=== PATIENT | female | born 1950 | race Caucasian/White ===

== ENCOUNTER 2024-03-21 10:41 | Outpatient (AMB) | payer MEDICARE, SELFPAY ==
--- NOTE | 2024-03-21 10:54 | A.OFFPC_ITS ---
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 Required: No Allergies bacitracin [From Neosporin ([id number])] Allergy (Unknown, Verified 03/23/24 13:41) Unknown latex Allergy (Unknown, Verified 03/23/24 13:41) Unknown neomycin [From Neosporin ([id number])] Allergy (Unknown, Verified 03/23/24 13:41) Unknown polymyxin B [From Neosporin ([id number])] Allergy (Unknown, Verified 03/23/24 13:41) Unknown antiobiotic cream Allergy (Unknown, Uncoded 03/23/24 13:41) Unknown Tobacco use date assessed: 03/21/24 Fall risk assessment: No Falls in past year Last assessed Fall Risk: 03/21/24 Dental Screening Dental Screen Date: 03/21/24 HPI HPI Comments History of Present Illness Details The patient is a 74 year old female with a past medical history of AR, pulmonary htn, CLL, hyperlipidemia, bladder cancer and osteopenia presenting for follow up CV: AR, pulmonary htn. stable on metoprolol. History of syncope nothing recent. Follows with Dr Coleman. Follows with vascular, Dr Santana for carotid artery stenosis History of prediabetes which has been stable. Heme/Onc -CLL-Has not required cytotoxic therapy. Follws with Dr Esteves -History of bladder cancer-treated with surgical resection. Follows with Dr Berg annually Saw [facility]-did not CIs. BCC-Follows with [facility] Mammogram: [facility] Stopped colonoscopy ROS CONSTITUTIONAL: Denies weight loss, fever and chills. HEENT: Denies changes in vision and hearing. RESPIRATORY: Denies SOB and cough. CV: Denies palpitations and CP GI: Denies abdominal pain, nausea, vomiting and diarrhea. : Denies dysuria and urinary frequency. MSK: Denies new myalgia and joint pain. SKIN: Denies rash and pruritus. NEUROLOGICAL: Denies headache PSYCHIATRIC: Denies recent changes in mood. PHYSICAL EXAM: GENERAL: Alert and oriented x 3. NAD EYES: EOMI. Anicteric. HENT: Moist mucous membranes. No scleral icterus. No cervical lymphadenopathy. LUNGS: Clear to auscultation bilaterally. CARDIOVASCULAR: Regular rate and rhythm. No murmur. No JVD. ABDOMEN: Soft, non-tender +bs EXTREMITIES: No edema. Non-tender. SKIN: No rashes or lesions. Warm. NEUROLOGIC: No focal neurological deficits. CN II-XII grossly intact PSYCHIATRIC: Cooperative. 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 1. Little interest or pleasure in doing things: not at all 2. Feeling down, depressed, or hopeless: not at all 3. Trouble falling or staying asleep, or sleeping too much: not at all 4. Feeling tired or having little energy: not at all 5. Poor appetite or overeating: not at all 6. Feeling bad about yourself - or that you are a failure or have let yourself or your family down: not at all 7. Trouble concentrating on things, such as reading the newspaper or watching television: not at all 8. Moving or speaking so slowly that other people could have noticed. Or the opposite - being so fidgety or restless that you have been moving around a lot more than usual: not at all 9. Thoughts that you would be better off or of hurting yourself in some way: not at all Total score: 0 Depression Screening Interpretation: Negative Depression Screening Done: Yes 01817 - PHQ-9 Billing: Yes Source: Developed by Drs. Andrez Slade, Kitty Torres, Kyle Starks and colleagues, with an educational kirt from [employer]. Thrive Questionnaire Date Thrive assessed: 03/14/24 I am a: Patient What is your living situation today?: I have a steady place to live Within the past 12 months, did the food you bought not last and you didn't have the money to get more?: Never true Within the past 12 months, did you worry whether your food would run out before you got money to buy more?: Never true Do you have trouble paying for medicines?: No Do you have trouble getting transportation to medical appointments?: No Do you have trouble paying your heating and electricity bill?: No Do you have trouble taking care of your child, family member or friend?: No Do you have trouble with day-to-day activities such as bathing, preparing meals, shopping, managing finances, etc.?: No Are you currently unemployed and looking for a job?: No Are you interested in more education?: No Please select the resources that you would like help with: None Currently or been in a relationship where the following occur: No concerns reported THRIVE Score: 0 AUDIT C Alcohol Use Questionnaire (AUDIT-C) 1. How often do you have a drink containing alcohol?: 4 or more times a week 2. How many drinks containing alcohol do you have on a typical day when you are drinking?: 1 or 2 3. How often do you have six or more drinks on one occasion?: Less than monthly Total Score: 5 MIGUEL-7 AMB Questionnaire MIGUEL-7 Feeling nervous, anxious, or on edge: 0 = Not at all Not being able to stop or control worryin = Not at all Worrying too much about different things: 0 = Not at all Trouble relaxin = Not at all Being so restless that it is hard to sit still: 0 = Not at all Becoming easily annoyed or irritable: 0 = Not at all Feeling afraid as if something awful might happen: 0 = Not at all Total MIGUEL-7 score (0-4 normal; 5-9 mild; 10-14 moderate; 15-21 severe): 0 Source: Developed by Drs. Andrez Slade, Kitty Torres, Kyle Starks and colleagues, with an educational kirt from [employer]. Physical exam (Primary Care) Vital Signs: Last Vital Signs Pulse 56 03/21/24 11:10 BP 108/62 03/21/24 11:10 Pulse Ox 98 03/21/24 11:10 Oxygen Delivery Method Room Air 03/21/24 11:10 BMI result Body Mass Index 24.5 Tobacco/Smoking Status: Tobacco use Status Tobacco use date assessed 03/21/24 03/21/24 11:09 Patient Tobacco Use Status Former Tobacco user 03/21/24 11:09 e-Cigarette/Vaping Use Never Used 03/21/24 11:09 PHQ-9: PHQ-9 Score PHQ-9: Total score 0 03/23/24 13:40 Depression Screening Interpretation: Negative Thrive Assessment: Date of Thrive Assessment Date Thrive assessed 03/14/24 03/21/24 11:09 Currently or been in a relationship where the following occur: No concerns reported Coding Level of Care Code Est Pt Level 4 (69317) Complex EM visit Add On G2211 Diagnoses Aortic valve insufficiency, etiology of cardiac valve disease unspecified I35.1 Cardiac valve disease etiology: etiology unspecified CLL (chronic lymphocytic leukemia) C91.10 History of bladder cancer Z85.51 Stenosis of carotid artery, unspecified laterality I65.29 Laterality: unspecified laterality Additional Codes PHQ-9 - 70015 - PHQ-9 Billing: Yes ([id number]) Assessment & Plan Assessment & Plan (1) Aortic regurgitation: Comment: Follows with Dr Coleman Code(s): I35.1 - Nonrheumatic aortic (valve) insufficiency Category: Medical Qualifiers: Cardiac valve disease etiology: etiology unspecified Qualified Code(s): I35.1 - Nonrheumatic aortic (valve) insufficiency Plan: UTD (2) CLL (chronic lymphocytic leukemia): Code(s): C91.10 - Chronic lymphocytic leukemia of B-cell type not having achieved remission Category: Medical Plan: Follows with heme/onc. UTD (3) History of bladder cancer: Code(s): Z85.51 - Personal history of malignant neoplasm of bladder Category: Medical Plan: Follows with heme/onc. (4) Carotid artery stenosis: Code(s): I65.29 - Occlusion and stenosis of unspecified carotid artery Category: Medical Qualifiers: Laterality: unspecified laterality Qualified Code(s): I65.29 - Occlusion and stenosis of unspecified carotid artery Plan: continue vascular follow up
[2024-03-21 11:10] VITALS: BP 108/62; PULSE 56; O2SAT 98; BMI 24.5
--- OUTSIDE RECORDS SUMMARY | 2024-03-21 12:07 | XMS_ITS ---
Author Name [facility] Organization Unknown History of Medication Use Medication Directions Dispensed Refills Start Date End Date Stat furosemide (LASIX) 20 MG tablet Take 20 mg by mouth as needed (swelling). 02/08/2024 9 active nirmatrelvir-ritonavi r (PAXLOVID) therapy pack Take two 150 mg tablets of nirmatrelvir and one 100 mg tablet of ritonavir twice daily for 5 days. Dispense #20 Nirmatrelvir 150 mg Tablets and #10 Ritonavir 100 mg tablets. 02/08/2024 9 active cefdinir (OMNICEF) 300 MG capsule Take 1 capsule (300 mg total) by mouth 2 (two) times a day. 10/21/2023 active Calcium Carb-Cholecalciferol (Calcium + Vitamin D3) 600-5 MG-MCG Tab 1 tablet with a meal Orally Once a day 10/21/2023 active doxycycline (VIBRA-TABS) 100 MG tablet Take 1 tablet (100 mg total) by mouth 2 (two) times a day. 10/17/2023 active alendronate 70 mg tablet 07/07/2023 completed betamethasone valerate 0.1 % topical cream PRN eczema 07/07/2023 completed olopatadine 0.2 % eye drops 07/07/2023 completed atorvastatin 40 mg tablet 07/07/2023 active Vitamin C 250 mg tablet 07/07/2023 completed simvastatin 20 mg tablet TAKE 1 TABLET BY ORAL ROUTE EVERY DAY IN THE EVENING 07/07/2023 completed mometasone 0.1 % topical cream 07/07/2023 completed Baby Aspirin 81 mg chewable tablet CHEW 1 TABLET (81MG) BY ORAL ROUTE EVERY DAY 07/07/2023 completed simvastatin 10 mg tablet TAKE 1 TABLET BY MOUTH EVERYDAY AT BEDTIME 07/07/2023 completed simvastatin 5 mg tablet TAKE 1 TABLET BY ORAL ROUTE EVERY DAY IN THE EVENING 07/07/2023 completed metoprolol succinate ER 25 mg tablet,extended release 24 hr TAKE 1 TABLET (25MG) BY ORAL ROUTE EVERY DAY 07/07/2023 active tobramycin 0.3 %-dexamethasone 0.1 % eye drops,suspension INSTILL 1 DROP INTO LEFT EYE 4 TIMES A DAY FOR 1 WEEK 07/07/2023 completed cephalexin 500 mg capsule TAKE 1 CAPSULE BY MOUTH 4 TIMES A DAY FOR 7 DAYS 07/07/2023 completed sulfamethoxazole 800 mg-trimethoprim 160 mg tablet 07/07/2023 completed azithromycin 250 mg tablet 07/07/2023 completed ciprofloxacin 500 mg tablet 07/07/2023 completed Fluad Quad [id number](65yr up)(PF) 60 mcg (15 mcg x 4)/0.5mL IM syringe PHARMACY ADMINISTERED 07/07/2023 completed amoxicillin 875 mg-potassium clavulanate 125 mg tablet 07/07/2023 completed Zostavax (PF) 19,400 unit/0.65 mL subcutaneous suspension 07/07/2023 completed doxycycline hyclate 100 mg capsule 07/07/2023 completed Calcium 500 + D 500 mg-5 mcg (200 unit) tablet TAKE 1 TABLET BY ORAL ROUTE 2 TIMES EVERY DAY 07/07/2023 completed Super B Complex + C 07/07/2023 a ctive mupirocin 2 % topical ointment APPLY TOPICALLY THREE TIMES A DAY. TO BACK SKIN LESION 07/07/2023 completed mupirocin (BACTROBAN) 2 % ointment Apply topically 3 (three) times a day. To back skin lesion 03/13/2023 active alendronate (FOSAMAX) 70 MG tablet 11/22/2022 active simvastatin (ZOCOR) 10 MG tablet Take 10 mg by mouth. 11/22/2022 active atorvastatin (LIPITOR) 40 MG tablet 03/13/2023 active simvastatin (ZOCOR) 10 MG tablet Take 10 mg by mouth. 11/22/2022 active CALCIUM PO Take by mouth. 11/22/2022 act marjorie Lactobacillus (Primadophilus) Cap Take by mouth. 11/22/2022 a ctive Super B Complex + C Super B Complex + C 06/24/2022 completed aspirin 81 MG chewable tablet Chew 81 mg daily. 03/13/2023 ac tive simvastatin 10 mg tablet TAKE 1 TABLET BY MOUTH EVERYDAY AT BEDTIME TAKE 1 TABLET BY MOUTH EVERYDAY AT BEDTIME 06/24/2022 completed metoPROLOL SUCCINATE (TOPROL-XL) 25 MG 24 hr tablet 11/22/2022 active metoprolol succinate ER 25 mg tablet,extended release 24 hr TAKE 1 TABLET (25MG) BY ORAL ROUTE EVERY DAY TAKE 1 TABLET (25MG) BY ORAL ROUTE EVERY DAY 06/24/2022 completed Allergies Allergen Reaction Severity Comment Documented Date Source Statu s CODEINE 06/10/2010 [facility] completed Problems Problem Status Onset Date Problem Type Date of Resolution Source Leukopenia active 2023-12-18 ProblemAct [facility] Malignant lymphoma, 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 ProblemAct [facility] Head congestion active EncounterDiagnosisAct [facility] Chronic lymphocytic leukemia active 2018-08-08 ProblemAct [facility] COVID-19 active EncounterDiagnosisAct [facility] Hyperlipidemia active 2013-01-[address] Leukemia active 2018-08-08 ProblemAct [facility] Heart murmur active 2013-01-17 ProblemAct [facility] Malignant tumor of urinary bladder active 2017-08-08 ProblemAct [facility] Tinnitus active ProblemAct [facility] Heart murmur active 2013-01-17 ProblemAct [facility] Hyperlipidemia active 2013-01-17 ProblemAct [facility] Chronic lymphoid leukemia, disease [facility] 2018-08-08 [facility] Vaccine Date Source Lot Number Status [id number] COVID-19, mRNA, LNP-S, PF, 30 mcg/0.3 mL dose 05/13/2020 [facility] completed Influenza, high dose seasonal 12/20/2018 [facility] [id number] completed Influenza vaccine, quadrivalent, adjuvanted 12/18/2021 [facility] [id number] completed COVID-19, mRNA, LNP-S, PF, 3 0 mcg/0.3 mL dose, cindy-sucrose 07/04/2021 [facility] [id number] completed COVID-19, mRNA, LNP-S, PF, 30 mcg/0.3 mL dose 12/11/2020 [facility] [id number] completed COVID-19, mRNA, LNP-S, PF, 30 mcg/0.3 mL dose 06/03/2020 [facility] completed Influenza vaccine, quadrivalent, adjuvanted 12/04/2019 [facility] [id number] completed
--- OUTSIDE RECORDS SUMMARY | 2024-03-21 12:07 | XMS_ITS | Data Portability ---
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 No Pap this year, PCP has ordered screening mammo, encouraged to schedule. tomas Not available 08/08/2018 13:29:57 Plan of Treatment Reminders Order Date Submit Date Provider Last Modified By Organization Details Last Modified Time Details Appointments None recorded. Lab urinalysi s, dipstick 2018 019 tomas In-Office Order, Internal Use Only DO Not Attach Compendium DO Not Attach Compendium, Do Not Delete/merge, [id number] 9 11:34:17 urinalysi s, dipstick 2020 021 [facility] 11 In-Office Order, Internal Use Only DO Not Attach Compendium DO Not Attach Compendium, Do Not Delete/merge, [id number] 12:59:24 urinalysi s, dipstick 2021 022 [facility] 11 In-Office Order, Internal Use Only DO Not Attach Compendium DO Not Attach Compendium, Do Not Delete/merge, [id number] 14:07:41 Referral None recorded. Procedures None recorded. Surgeries None recorded. Imaging MAMMO, screening , digital, bilateral , w/ CAD 2020 021 [facility] (Radiology), [address] [place], [address], 08:17:37 DEXA, axial skeleton 2023 024 [facility], [address] [place], [address], 08:21:29 Medication Orders None recorded. Patient TargetsNo targets recorded. Patient Instructions Encounter Date Encounter Id Patient Instructions Last Modified By Organization Details Last Modified Time 08/08/2018 [id number] preventing osteoporosis: care instructions [email or web address] Not available 08/08/2018 11:34:17 03/20/2020 [id number] [email or web address] Not available 0 03/20/2020 12:55:32 03/31/2021 [id number] tips to help you stay healthy [email or web address] Not available 03/31/2021 11:58:44 06/18/2022 [id number] rogel US of left groin; to monitor after US Not available 06/18/2022 12:54:43 Reason for Referral None Reported. Results Created Date Observation Date Name Description Value Unit Range Abnormal Flag Note LastModifiedBy Organization Detail LastModifiedTime 08/09/1908/08/2018 urina lysis , dipst ick Leukocytes Negati ve Not Available In-Office Order Internal Use Only DO Not Attach Compendium DO Not Attach Compendium, Do Not Delete/merge, [id number] 08/08/2018 10:52:22 08/09/1908/08/2018 urina lysis , dipst ick Nitrite negati ve Not Available In-Office Order Internal Use Only DO Not Attach Compendium DO Not Attach Compendium, Do Not Delete/merge, [id number] 08/08/2018 10:52:22 08/09/1908/08/2018 urina lysis , dipst ick Urobilinogen Normal : 0.2 mg/dl Not Available In-Office Order Internal Use Only DO Not Attach Compendium DO Not Attach Compendium, Do Not Delete/merge, [id number] 08/08/2018 10:52:08/09/1908/08/2018 urina lysis , dipst ick Protein Negati ve Not Available In-Office Order Internal Use Only DO Not Attach Compendium DO Not Attach Compendium, Do Not Delete/merge, 08/08/2018 10:52:22 08/09/1908/08/2018 urina lysis , dipst ick pH 7.0 Not Available In-Office Order Internal Use Only DO Not Attach Compendium DO Not Attach Compendium, Do Not Delete/merge, 08/08/2018 10:52:22 08/09/1908/08/2018 urina lysis , dipst ick Blood Negati ve Not Available In-Office Order Internal Use Only DO Not Attach Compendium DO Not Attach Compendium, Do Not Delete/merge, 08/08/2018 10:52:22 08/09/1908/08/2018 urina lysis , dipst ick Specific Quartzsite 1.005 Not Available In-Off ice Order Internal Use Only DO Not Attach Compendium DO Not Attach Compendium, Do Not Delete/merge, 08/08/2018 10:52:22 08/09/1908/08/2018 urina lysis , dipst ick Ketone Negati ve Not Available In-Office Order Internal Use Only DO Not Attach Compendium DO Not Attach Compendium, Do Not Delete/merge, 08/08/2018 10:52:22 08/09/1908/08/2018 urina lysis , dipst ick Bilirubin Negati ve Not Available In-Office Order Internal Use Only DO Not Attach Compendium DO Not Attach Compendium, Do Not Delete/merge, 08/08/2018 10:52:22 08/09/1908/08/2018 urina lysis , dipst ick Glucose Negati ve Not Available In-Office Order Internal Use Only DO Not Attach Compendium DO Not Attach Compendium, Do Not Delete/merge, 08/08/2018 10:52:22 08/09/1908/08/2018 urina lysis , dipst ick Appearance Clear Not Available In-Offi ce Order Internal Use Only DO Not Attach Compendium DO Not Attach Compendium, Do Not Delete/merge, 08/08/2018 10:52:22 08/09/19 19 08/08/2018 urina lysis , dipst ick Color Yellow Not Available In-Office Order Internal Use Only DO Not Attach Compendium DO Not Attach Compendium, Do Not Delete/merge, 08/08/2018 10:52:22 03/20/19 21 03/20/2020 urina lysis , dipst ick Leukocytes Trace Not Available In-Offi ce Order Internal Use Only DO Not Attach Compendium DO Not Attach Compendium, Do Not Delete/merge, 03/20/2020 12:14:28 03/20/19 21 03/20/2020 urina lysis , dipst ick Nitrite negati ve Not Available In-Office Order Internal Use Only DO Not Attach Compendium DO Not Attach Compendium, Do Not Delete/merge, 03/20/2020 12:14:28 03/20/19 21 03/20/2020 urina lysis , dipst ick Urobilinogen Normal : 0.2 mg/dl Not Available In-Office Order Internal Use Only DO Not Attach Compendium DO Not Attach Compendium, Do Not Delete/merge, 03/20/2020 12:14:28 03/20/19 21 03/20/2020 urina lysis , dipst ick Protein Negati ve Not Available In-Office Order Internal Use Only DO Not Attach Compendium DO Not Attach Compendium, Do Not Delete/merge, 03/20/2020 12:14:28 03/20/19 21 03/20/2020 urina lysis , dipst ick pH 7.0 Not Available In-Office Order Internal Use Only DO Not Attach Compendium DO Not Attach Compendium, Do Not Delete/merge, 03/20/2020 12:14:28 03/20/19 21 03/20/2020 urina lysis , dipst ick Blood Negati ve Not Available In-Office Order Internal Use Only DO Not Attach Compendium DO Not Attach Compendium, Do Not Delete/merge, 03/20/2020 12:14:28 03/20/19 21 03/20/2020 urina lysis , dipst ick Specific Quartzsite 1.010 Not Available In-Off ice Order Internal Use Only DO Not Attach Compendium DO Not Attach Compendium, Do Not Delete/merge, 03/20/2020 12:14:28 03/20/19 21 03/20/2020 urina lysis , dipst ick Ketone Negati ve Not Available In-Office Order Internal Use Only DO Not Attach Compendium DO Not Attach Compendium, Do Not Delete/merge, 03/20/2020 12:14:28 03/20/19 21 03/20/2020 urina lysis , dipst ick Bilirubin Negati ve Not Available In-Office Order Internal Use Only DO Not Attach Compendium DO Not Attach Compendium, Do Not Delete/merge, 03/20/2020 12:14:28 03/20/19 21 03/20/2020 urina lysis , dipst ick Glucose Negati ve Not Available In-Office Order Internal Use Only DO Not Attach Compendium DO Not Attach Compendium, Do Not Delete/merge, 03/20/2020 12:14:28 03/20/19 21 03/20/2020 urina lysis , dipst ick Appearance Clear Not Available In-Offi ce Order Internal Use Only DO Not Attach Compendium DO Not Attach Compendium, Do Not Delete/merge, 03/20/2020 12:14:28 03/20/19 21 03/20/2020 urina lysis , dipst ick Color Yellow Not Available In-Office Order Internal Use Only DO Not Attach Compendium DO Not Attach Compendium, Do Not Delete/merge, 03/20/2020 12:14:28 03/31/19 22 03/31/2021 urina lysis , dipst ick Interpretati on negati ve Not Available In-Office Order Internal Use Only DO Not Attach Compendium DO Not Attach Compendium, Do Not Delete/merge, 03/31/2021 14:07:18 03/31/19 22 03/31/2021 urina lysis , dipst ick Interpretati on negati ve Not Available In-Office Order Internal Use Only DO Not Attach Compendium DO Not Attach Compendium, Do Not Delete/merge, 03/31/2021 13:44:10 03/31/19 22 03/31/2021 urina lysis , dipst ick Leukocytes Negati ve Not Available In-Office Order Internal Use Only DO Not Attach Compendium DO Not Attach Compendium, Do Not Delete/merge, 03/31/2021 13:44:10 03/31/19 22 03/31/2021 urina lysis , dipst ick Nitrite negati ve Not Available In-Office Order Internal Use Only DO Not Attach Compendium DO Not Attach Compendium, Do Not Delete/merge, 03/31/2021 13:44:10 03/31/19 22 03/31/2021 urina lysis , dipst ick Urobilinogen Normal : 0.2 mg/dl Not Available In-Office Order Internal Use Only DO Not Attach Compendium DO Not Attach Compendium, Do Not Delete/merge, 03/31/2021 13:44:10 03/31/19 22 03/31/2021 urina lysis , dipst ick Protein Negati ve Not Available In-Office Order Internal Use Only DO Not Attach Compendium DO Not Attach Compendium, Do Not Delete/merge, 03/31/2021 13:44:10 03/31/19 22 03/31/2021 urina lysis , dipst ick pH 7.0 Not Available In-Office Order Internal Use Only DO Not Attach Compendium DO Not Attach Compendium, Do Not Delete/merge, 03/31/2021 13:44:10 03/31/19 22 03/31/2021 urina lysis , dipst ick Blood Negati ve Not Available In-Office Order Internal Use Only DO Not Attach Compendium DO Not Attach Compendium, Do Not Delete/merge, 03/31/2021 13:44:10 03/31/19 22 03/31/2021 urina lysis , dipst ick Specific Quartzsite 1.005 Not Available In-Off ice Order Internal Use Only DO Not Attach Compendium DO Not Attach Compendium, Do Not Delete/merge, 03/31/2021 13:44:10 03/31/19 22 03/31/2021 urina lysis , dipst ick Ketone Negati ve Not Available In-Office Order Internal Use Only DO Not Attach Compendium DO Not Attach Compendium, Do Not Delete/merge, [id number] 03/31/2021 13:44:10 03/31/19 22 03/31/2021 urina lysis , dipst ick Bilirubin Negati ve Not Available In-Office Order Internal Use Only DO Not Attach Compendium DO Not Attach Compendium, Do Not Delete/merge, 03/31/2021 13:44:10 03/31/19 22 03/31/2021 urina lysis , dipst ick Glucose Negati ve Not Available In-Office Order Internal Use Only DO Not Attach Compendium DO Not Attach Compendium, Do Not Delete/merge, 03/31/2021 13:44:10 03/31/19 22 03/31/2021 urina lysis , dipst ick Appearance Clear Not Available In-Offi ce Order Internal Use Only DO Not Attach Compendium DO Not Attach Compendium, Do Not Delete/merge, 03/31/2021 13:44:10 03/31/19 22 03/31/2021 urina lysis , dipst ick Color Yellow Not Available In-Office Order Internal Use Only DO Not Attach Compendium DO Not Attach Compendium, Do Not Delete/merge, 03/31/2021 13:44:10 12/06/19 20 12/06/2019 MAMMO , scree kermit, tomos ynthe sis, bilat eral No observ ation record ed. BARCODE Not Available 2019 14:31:48 04/08/19 22 03/31/2021 MAMMO , scree kermit, tomos ynthe sis, bilat eral HISTOR Y: Rufina villatoro is 71 years old and is seen for screen ing. FILMS COMPAR ED: The prescooper villatoro examin ation has been compar ed to prior imagin g studie s dated 2017, 2016 and 2015. BLAS STATEKayden ENT: Comput er-aid ed detect ion was utiliz ed by the radiol ogist in the interp retati on of this examin ation. 3D tomosy nthesi s digita l mammog raphic images were obtain ed using standa rd projec tions. MAMMOG DEEPALI FINDIN GS: The breast s are hetero geneou sly dense, which may obscur e small masses . (ACR BIRADS densit y Catego ry c) * No suspic ious masses , calcif icatio ns or other abnorm alitie s are seen in either breast . IMPRES WESTLEY: There is no mammog raphic eviden ce of malign denice. Routin e follow -up mammog deepali in 1 year is recomm ended. The rufina villatoro will receiv e a lay summar y of the result s of this breast imagin g exam. Lay summar ies for mammog kim examin ations will also identi fy the rufina villatoro's person al breast tissue compos ition as requir ed by state law. BIRADS Catego ry 1: Negati ve Electr onical ly Signed By: JEAN-PAUL GALINDO Electr onical ly Signed On: Apr 08, 2021 07:06 [facility] [place] [address], [place], [address], 04/08/2021 18:29:49 08/30/19 22 08/19/2021 DEXA, axial skele ton No observ ation record ed. [facility] [address], [place], [address], 08/29/2021 16:10:49 06/25/19 23 06/18/2022 MAMMO , scree kermit, tomos ynthe sis, bilat eral HISTOR Y: Rufina villatoro is 72 years old and is seen for screen ing. The rufina villatoro has the follow ing family histor y of breast cancer : female cousin , at an unknow n age, breast cancer , IN HER 50'S. FILMS COMPAR ED: The kathy villatoro examin ation has been compar ed to prior imagin g studie s dated 2021, 2017, 2016 and 2015. BLAS RECINOS ENT: Comput er-aid ed detect ion was utiliz ed by the radiol ogist in the interp retati on of this examin ation. 3D tomosy nthesi s digita l mammog raphic images were obtain ed using standa rd projec tions. MAMMOG DEEPALI FINDIN GS: The breast s are hetero geneou sly dense, which may obscur e small masses . (ACR BIRADS densit y Catego ry c) * No suspic ious masses , calcif icatio ns or other abnorm alitie s are seen in either breast . IMPRES WESTLEY: There is no mammog raphic eviden ce of malign denice. Routin e follow -up mammog deepali in 1 year is recomm ended. The patien t will receiv e a lay summar y of the result s of this breast imagin g exam. Lay summar ies for mammog kim examin ations will also identi fy the patien t's person al breast tissue compos ition as requir ed by state law. BIRADS Catego ry 1: Negati ve Electr onical ly Signed By: JEAN-PAUL GALINDO Electr onical ly Signed On: Jun 24, 2022 11:15 [facility] [address], [place], [address], 07/01/2022 08:09:57 07/07/1907/07/2023 MAMMO , scree kermit, tomos ynthe sis, bilat eral No observ ation record ed. [email or web address] [facility] [address], [place], [address], 07/15/2023 09:52:44 07/15/19 24 07/05/2023 MAMMO , scree kermit, tomos ynthe sis, bilat eral No observ ation record ed. BARCODE Not Available 2023 09:59:31 09/24/1909/23/2023 DEXA, axial skele ton No observ ation record ed. [facility] [address], [place], [address], 09/24/2023 15:20:59 Result Notes None recorded. 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, monitored w/ cystoscop y JOE SEN MD [address], [place], [place], [address] [place] [address] 4, [facility] 9 11:17:25 Leukemia 39434773 Completed 201808/08/2018 being monitored JOE SEN MD [address], [place], [place], [address] [place] [address] 4, [facility] 9 11:16:41 Ringing in ear 199329522 Completed 201808/08/2018 JOE SEN MD [address], [place], [place], [address] [place] [address] 4, [facility] 9 11:12:18 Tinnitus 96754829 Active JOE SEN MD [address], [place], [place], [address] [place] [address] 4, [facility] 9 11:12:13 Chronic lymphoid leukemia , disease 42060228 Active 2018 being monitored Willow Randall [facility] 0 09:50:37 Heart murmur 21508107 Active 2012 hx fainting spells JOE SEN MD [address], [place], [place], [address] [place] [address] 4, [facility] 6 14:20:57 Hyperlip idemia 28536785 Active 2012 JOE SEN MD [address], [place], [address], [facility] 6 14:20:57 Depressi on screenin g Active 2021 Julia schmitt MD [address], [place], [address], [facility] 2 10:08:15 Gynecolo gic examinat ion Active 2021 Julia schmitt MD [address], [place], [address], [facility] 2 10:08:17 Problem Notes None recorded. Procedures Surgical History Date Name Laterality Status Provider Name and Address Organization Details Recorded Time 07/05/19 24 Date of Last Mammogram completed Dinorah Hay [facility] 07/07/2023 15:24:09 08/09/19 19 Medicare Exam completed JOE SEN MD [address], [place], [address], [facility] 08/08/2018 11:36:11 09/30/19 18 Other completed Kitty Dick [facility] 08/08/2018 10:46:45 07/20/19 18 Medicare Exam completed JOE SEN MD [address], [place], [address], [facility] 07/19/2017 12:57:46 07/20/19 18 Screening PAP Medicare completed JOE SEN MD [address], [place], [address], [facility] 07/19/2017 12:58:19 07/20/19 18 Date of Last Pap Smear completed Renetta Flores [facility] 03/24/2021 10:02:04 07/16/19 17 Cataract Surgery completed Kitty Dick [facility] 07/19/2017 10:42:49 05/26/19 17 [id number] completed JOE SEN MD [address] [place], [address] [place] [address], [facility] 05/25/2016 11:54:35 05/26/19 17 [id number] completed JOE SEN MD [address], [address] [place] [address], [address] [place] [address], [facility] 05/25/2016 11:54:43 05/26/19 17 [id number] completed JOE SEN MD [address] [place], [address] [place] [address], [facility] 05/25/2016 11:54:32 05/26/19 17 [id number] completed JOE SEN MD [address], [address] [place] [address], [address] [place] [address], [facility] 05/25/2016 11:54:38 05/13/19 16 [id number] completed JOE SEN MD [address], [address] [place] [address], [address] [place] [address], [facility] 05/13/2015 16:20:34 05/13/19 16 [id number]-[id number] completed JOE SEN MD [address] [place], [address] [place] [address], [facility] 05/13/2015 16:20:34 05/13/19 16 [id number] completed JOE SEN MD [address] [place], [address] [place] [address], [facility] 05/13/2015 16:20:34 05/13/19 16 [id number] completed JOE SEN MD [address] [place], [address] [place] [address], [place] - [facility] 05/13/2015 16:20:34 04/24/19 15 Date of Last Colonoscopy completed Mariam Liang CT - [facility] 05/10/2015 09:01:47 03/01/18 60 Other completed Mariam Rices CT - [facility] 05/10/2015 09:01:46 03/01/18 59 Tonsillectomy completed Mariam Rices CT - [facility] 05/10/2015 09:01:46 excision of basal cell carcinoma completed Deonna De La Rosa [place] - [facility] 07/05/2023 10:35:29 excision of melanoma completed Deonna De La Rosa [place] - [facility] 07/05/2023 10:36:44 Imaging Results Imaging Date Name Status LastModified by Organiz ation Details LastModified Time 12/06/2019 MAMMO, screening, tomosynthesis, bilateral completed BARCODE Information not available 12/06/2019 14:31:48 03/31/2021 MAMMO, screening, tomosynthesis, bilateral completed [facility] [address], [place], [address], 04/08/2021 18:29:49 08/19/2021 DEXA, axial skeleton completed [email or web address] [facility] [address], [place], [address], 08/29/2021 16:10:49 06/18/2022 MAMMO, screening, tomosynthesis, bilateral completed [facility] [place] [address], [place], [address], 07/01/2022 08:09:57 07/07/2023 MAMMO, screening, tomosynthesis, bilateral completed [email or web address] [facility] [address], [place], [address], 07/15/2023 09:52:44 07/05/2023 MAMMO, screening, tomosynthesis, bilateral completed BARCODE Information not available 07/15/2023 09:59:31 09/23/2023 DEXA, axial skeleton completed [facility] [address], [place], [address], 09/24/2023 15:20:59 Procedure Notes None recorded. Medical Equipment None Reported. Allergies Allergen ID Allergen Name Allergen Category Reaction Reaction Severity Criticality Documentation Date Start Date Code Code System Note Provider Name and Address Organization Details Recorded Time [id number] nickel environme nt Not available Not available Not available 03/31/2021 79820 29 RxNorm Renetta Mark [facility], [facility] 11:24:11 415501 bacitraci n zinc medicatio n vomiting Not available Not available 06/23/20142012 37393 RxNorm RASH; NEOSP ZOILALyubov Girard [facility], [facility] 6 08:37:03 888054 polymyxin B Not available vomiting Not available Not available 06/23/20142012 8536 RxNorm REACT ION: RASH; NEOSP ZOILA Kailee Girard null, [facility] 6 08:37:03 224971 latex environme nt,medica tion rash Not available Not available 06/23/20142012 07441 91 RxNorm REACT ION: RASH Kailee gaviria, [facility] 6 08:37:03 145475 codeine medicatio n Not available Not available Not available 06/23/20142010 2670 RxNorm Kailee Girard null, [facility] 6 14:01:10 560142 neomycin sulfate medicatio n vomiting Not available Not available 06/23/20142012 7300 RxNorm RASH; NEOSP ZOILA Kailee Girard null, [facility] 6 08:37:03 071391 bacitraci n Not available vomiting Not available Not available 06/23/20142012 1291 RxNorm NEOSP ZOILA; RASH Kailee Girard null, [place] [facility] 6 08:37:03 Medications Name Sig Start Date Stop Date Status Note LastModified by Organization Details LastModified Time atorvasta tin 40 mg tablet active Not Available Not Available Not Available doxycycli ne hyclate 100 mg capsule 03/30 completed Not Available Not Available Not Available azithromy doyle 250 mg tablet 08/08 completed Not Available Not Available Not Available alendrona te 70 mg tablet 06/15 completed Not Available Not Available Not Available simvastat in 10 mg tablet TAKE 1 TABLET BY MOUTH EVERYDAY AT BEDTIME 07/03 completed Not Available Not Available Not Available ciproflox acin 500 mg tablet 07/19 completed Not Available Not Available Not Available sulfameth oxazole 800 mg-trimet hoprim 160 mg tablet 05/25 completed Not Available Not Available Not Available betametha sone valerate 0.1 % topical cream PRN eczema 06/15 completed Not Available Not Available Not Available simvastat in 5 mg tablet TAKE 1 TABLET BY ORAL ROUTE EVERY DAY IN THE EVENING 01/17 completed PRESCRIB ED ELSEWHER E Not Available Not Available Not Available cephalexi n 500 mg capsule TAKE 1 CAPSULE BY MOUTH 4 TIMES A DAY FOR 7 DAYS 03/30 completed Not Available Not Available Not Available simvastat in 20 mg tablet TAKE 1 TABLET BY ORAL ROUTE EVERY DAY IN THE EVENING 01/17 completed Not Available Not Available Not Available magnesium 100 mg capsule 01/04 completed PRESCRIB ED ELSEWHER E Not Available Not Available Not Available Baby Aspirin 81 mg chewable tablet CHEW 1 TABLET (81MG) BY ORAL ROUTE EVERY DAY 08/08 completed Not Available Not Available Not Available mupirocin 2 % topical ointment APPLY TOPICALL Y THREE TIMES A DAY. TO BACK SKIN LESION 07/03 completed Not Available Not Available Not Available metoprolo l succinate ER 25 mg tablet,ex tended release 24 hr TAKE 1 TABLET (25MG) BY ORAL ROUTE EVERY DAY active Not Available Not Available No t Available Vitamin C 250 mg tablet 08/08 completed Not Available Not Available Not Available multivita min capsule TAKE 1 CAPSULE BY ORAL ROUTE EVERY DAY 05/25 completed Not Available Not Available Not Available mometason e 0.1 % topical cream 06/15 completed Not Available Not Available Not Available amoxicill in 875 mg-potass ium clavulana te 125 mg tablet 03/30 completed Not Available Not Available Not Available tobramyci n 0.3 %-dexamet hasone 0.1 % eye drops,lisa pension INSTILL 1 DROP INTO LEFT EYE 4 TIMES A DAY FOR 1 WEEK 03/30 completed Not Available Not Available Not Available Calcium 500 + D 500 mg-5 mcg (200 unit) tablet TAKE 1 TABLET BY ORAL ROUTE 2 TIMES EVERY DAY 03/17 completed Not Available Not Available Not Available Calcium 600 with Vitamin D3 active Not Available Not Available Not Available Zostavax (PF) 19,400 unit/0.65 mL subcutane ous suspensio n 05/25 completed Not Available Not Available Not Available Super B Complex + C active Not Available Not Available Not Available olopatadi ne 0.2 % eye drops 03/30 completed Not Available Not Available Not Available Probiotic 1 time daily active Not Available Not Available No t Available B6 100 mg-FA 800 mcg-B12 200 mcg-co Q10 100 mg-herbal no.225 tablet 07/19 completed Not Available Not Available Not Available Fluad Quad 2619-5254 (65yr up)(PF) 60 mcg (15 mcg x 4)/0.5mL IM syringe PHARMACY ADMINIST ERED 03/17 completed Not Available Not Available Not Available Paxlovid 300 mg (150 mg x 2)-100 mg tablets in a dose pack PLEASE SEE ATTACHED FOR DETAILED DIRECTIO NS 07/03 completed Not Available Not Available Not Available Vitals Date Recorded Body height Provider Name an d Address Organization Details Last Updated DateTime 08/08/2018 157.48 cm Kitty Dick [facility] 08/08/2018 10:52:09 Date Recorded Body mass index (BMI) Body weight Provider Name and Address Organization Details Last Updated DateTime 08/08/2018 26.5 kg/m2 13057.89 g Kitty Dick [facility] 08/08/2018 10:52:13 Date Recorded Body height Provider Name an d Address Organization Details Last Updated DateTime 03/20/2020 157.48 cm Lashae Jenkinsmaryjerica [facility] 03/20/2020 12:10:55 Date Recorded Body mass index (BMI) Body weight Provider Name and Address Organization Details Last Updated DateTime 03/20/2020 24.1 kg/m2 18282.19 g Lashae Jenkinsnathan [facility] 03/20/2020 12:11:47 Date Recorded Body height Provider Name an d Address Organization Details Last Updated DateTime 03/31/2021 156.21 cm Renetta Flores [facility] 03/31/2021 11:28:42 Date Recorded Body mass index (BMI) Body weight Provider Name and Address Organization Details Last Updated DateTime 03/31/2021 24.2 kg/m2 21175.01 g Renetta Flores [facility] 03/31/2021 11:28:47 Date Recorded Body height Provider Name an d Address Organization Details Last Updated DateTime 06/18/2022 156.21 cm Kitty Dick [facility] 06/18/2022 12:13:22 Date Recorded Body mass index (BMI) Body weight Provider Name and Address Organization Details Last Updated DateTime 06/18/2022 24 kg/m2 90400.42 g Kitty Dick [facility] 06/18/2022 12:13:32 Date Recorded Body height Provider Name an d Address Organization Details Last Updated DateTime 07/05/2023 157.48 cm Deonna De La Rosa [facility] 07/05/2023 10:27:38 Date Recorded Body mass index (BMI) Body weight Provider Name and Address Organization Details Last Updated DateTime 07/05/2023 24.3 kg/m2 77589.79 g Deonna De La Rosa [facility] 07/05/2023 10:27:42 Date Recorded Systolic blood pressure Diastolic blood pressure Provider Name and Address Organization Details Last Updated DateTime 08/08/2018 120 mm[Hg] 76 mm[Hg] Kitty Dick [facility] 08/08/2018 10:52:06 Date Recorded Systolic blood pressure Diastolic blood pressure Provider Name and Address Organization Details Last Updated DateTime 03/20/2020 124 mm[Hg] 82 mm[Hg] Lashae Jenkinsmaryjerica [facility] 03/20/2020 12:15:58 Date Recorded Systolic blood pressure Diastolic blood pressure Provider Name and Address Organization Details Last Updated DateTime 03/31/2021 120 mm[Hg] 76 mm[Hg] Renetta Marriscoll [facility] 03/31/2021 11:30:20 Date Recorded Systolic blood pressure Diastolic blood pressure Provider Name and Address Organization Details Last Updated DateTime 06/18/2022 112 mm[Hg] 62 mm[Hg] Kitty PriceMayelin [facility] 06/18/2022 12:13:18 Date Recorded Systolic blood pressure Diastolic blood pressure Provider Name and Address Organization Details Last Updated DateTime 07/05/2023 126 mm[Hg] 82 mm[Hg] Deonna De La Rosa [facility] 07/05/2023 10:28:29 Social History Question Answer Notes LastModified by Organizat ion Details LastModified Time Tobacco Smoking Status Former Smoker quit in 2007 Kailee gaviria [facility] 05/13/2015 14:05:32 What Is Your Level Of Alcohol Consumption? Moderate Information not available 08/08/2018 Is Blood Transfusion Acceptable In An Emergency? Yes [email or web address] Information not available 06/18/2022 Are You Currently Employed? No [email or web address] Information not available 07/05/2023 Education 12 [email or web address] Information no t available 06/18/2022 What Is The Highest Grade Or Level Of School You Have Completed Or The Highest Degree You Have Received? [id number] [email or web address] Information not available 03/31/2021 What Is Your Occupation? Retired [email or web address] Information not available 06/18/2022 Do You Have Any Children? No Information not available 05/25/2016 Does Your Partner Physically Hurt You Or Threaten To Hurt You? No Information not available 07/19/2017 Has Your Partner Forced You To Have Sex Or Perform Sex Acts When You Did Not Want To? No Information not available 07/19/2017 Does Your Partner Insult, Scream At Or Talk Down To You? No Information not available 07/19/2017 Does Your Partner Control You Or Any Part Of Your Life? No Information not available 07/19/2017 Are You Afraid Of Your Partner? No Information not available 07/19/2017 Tobacco Type Cigarettes Information not available 08/08/2018 Drug Use? No Information n ot available 07/19/2017 Do You Feel Safe At Home? Yes [email or web address] Information not available 05/13/2015 What Was The Date Of Your Most Recent Tobacco Screening? 07/05/2023 Information not available 07/05/2023 How Many Children Do You Have? 0 [email or web address] Information not available 03/31/2021 Are You Sexually Active? No Information not available 07/05/2023 General Stress Level Medium [email or web address] Information not available 06/18/2022 Do You Feel Stressed (tense, Restless, Nervous, Or Anxious, Or Unable To Sleep At Night)? [id number] [email or web address] Information not available 03/31/2021 How Many Years Have You Smoked Tobacco? 35 Information not available 05/25/2016 Have You Recently Traveled Abroad? No [email or web address] Information not available 03/20/2020 Have You Recently (within The Last 12 Weeks, Or During A Current ) Traveled To Or Lived In A Zika-affected Area? No [email or web address] Information not available 06/18/2022 Sex: Female Functional Status Question Answer Note LastModified by Organization D etails LastModified Time What is your exercise level? Moderate Information not available 05/25/2016 Mental Status None recorded. Family History Relationship Description Onset Age of this Age Resolved Age Notes LastModified by Organization Details LastModified Time Unspecified Relation Hyperlipidem ia family histor y [email or web address] Not available 05/13/2015 16:19:09 Father Hypertensive disorder [email or web address] Not available 05/12 16:19:09 Father Myocardial infarction [email or web address] Not available 07/04 10:26:17 Father Kidney stone Not avai lable 07/05/2023 10:26:17 Father Gout pt. added direct ly (03/17) [email or web address] Not available 03/17/2020 12:18:20 Mother Malignant tumor of lung [email or web address] Not available 05/12 16:19:10 Mother Chronic obstructive pulmonary disease [email or web address] Not available 2023 10:26:17 Paternal Aunt Myocardial infarction [email or web address] Not available 07/04 10:26:17 Paternal Grandmother Malignant neoplastic disease [email or web address] Not available 05/12 16:19:10 Paternal Grandmother Myocardial infarction [email or web address] Not available 07/04 10:26:17 Maternal Grandfather History of aortofemoral bypass surgery [email or web address] Not available 2023 10:26:17 Sister Disorder of thyroid gland Not available 07/30 10:48:43 Sister Kidney stone [email or web address] Not avai lable 07/05/2023 10:26:17 Sister Coronary arterioscler osis Bypass surger y 2020 [email or web address] Not available 03/20/2020 13:08:54 Brother Kidney stone [email or web address] Not ryann ilable 07/05/2023 10:26:17 Brother Malignant tumor of prostate pt. added direct ly (06/15) [email or web address] Not available 06/15/2022 18:32:15 Notes:no known colon ovarian uterine or breast cancer. LL Medical History Condition Response Heart Problems Y Other Y Hyperlipidemia Y Cancer Y Osteoporosis Y Gynecological History Statement/Question Response Date of Last Mammogram 07/05/2023 Date of LMP Breast Biopsy N IPV Screen Done 07/05/2023 STIs/STDs N Cervical Cancer N If Post Menopausal, Age at Menopause 50 BrCa gene tested? N Ovarian Cancer N Date of Last Colonoscopy 04/24/2014 Breast Cancer N Date of last DEXA 07/06/2016 Last HPV Result Negative Abnormal Pap N BrCa Positive N Infertility N HPV Vaccine N Endometriosis N Age at Menarche 15 Current Control Method Menopause Fibroids N Uterine Cancer N Current Control Method Menopause Sexually Active? N Sexual Problems? N Date of Last Pap Smear 07/19/2017 Obstetrics History GPAL:G 1 P 0 0 1 0 Type Value Induced 1 Living 0 Total 1 Immunizations Vaccine Type Date Status Note Provider Nam e and Address Organization Details Recorded Time Influenza, adjuvanted, quadrivalent, PF 12/04/2019 completed Deonna De La Rosa null, [facility] 07/02/2023 08:23:56 Influenza, adjuvanted, quadrivalent, PF 12/18/2021 completed Deonna De La Rosa null, [facility] 07/02/2023 08:23:56 COVID-19, mRNA, LNP-S, PF, 30 mcg/0.3 mL dose, [email or web address] 07/04/2021 completed Deonna De La Rosa null, [facility] 07/02/2023 08:23:56 Influenza, high-dose, trivalent, PF 12/20/2018 completed Deonna De La Rosa null, [facility] 07/02/2023 08:23:56 COVID-19, mRNA, LNP-S, PF, 30 mcg/0.3 mL dose 05/13/2020 garcia gaviria, [facility] 03/31/2021 11:25:52 COVID-19, mRNA, LNP-S, PF, 30 mcg/0.3 mL dose [facility] 11:25:57 COVID-19, mRNA, LNP-S, PF, 30 mcg/0.3 mL dose 12/11/2020 [facility] 08:23:56 Past Encounters Encounter ID Performer Location Encounter Start Date Encounter Closed Date Diagnosis/Indication Diagnosis SNOMED-CT Code Diagnosis ICD10 Code Diagnosis Note [id number] JOE SEN MD [facility] 20 [facility] e [address] [place] [id number] 05/13/2015 13:49:19 05/13/2015 14:40:05 Gynecologic examination 44290205 Z01.192 [id number] JOE SEN MD [facility] [address] [facility],[address] [place] [address] 05/25/2016 11:19:26 05/25/2016 11:56:23 Gynecologic examination 13594204 Z01.601 [id number] JOE SEN MD [facility] 20 [facility],S[address] [place], [place] [address] 07/19/2017 10:25:32 07/19/2017 11:23:45 Gynecologic examination 13280453 Z01.419 Z11.51 Screening for malignant neoplasm of cervix 432703512 Z12.4 [id number] JOE SEN MD [facility] 20 [facility],[address] [place] [id number] 08/08/2018 10:28:52 08/08/2018 11:43:04 Gynecologic examination 22458953 Z01.419 Z12.4 [id number] Julia Segura MD [facility] 20 [facility] e [address] [place] [phone] 03/20/2020 12:02:23 03/20/2020 13:06:04 Gynecologic examination 82637687 Z01.419 Pt p/f well-woman exam. Pt's history is unremarkab le and exam is normal. - Pap was {{performe d not performed* }}today as guidelines recommend d/c'ing cervical CA screening at age 65 as long as no h/o DOYLE-2+, pt without any abnl paps thus no further paps indicated. - Annual Digital Bilateral Mammogram was recommende d and ordered--U S also recommende d for screening if patients have dense breasts. Next due 11/2020. - Pt counseled regarding menopausal symptoms including hot flushes, vaginal dryness, mood changes, and difficulty sleeping. She has been offered an appointmen t to speak to me specifical ly about these symptoms and some strategies to ease them if and when they occur. - Pt made aware that any VB after menopause is not normal and she should call to make an appointmen t for evaluation if she experience s PMB. - Pt advised on the benefits of self-breas t awareness and SBE. - Pt made aware of recommenda tion of 1200 mg of daily Calcium (best source is from diet, if possible) and 600-800iu of Vitamin D daily (2000iu if deficient) along with weight bearing exercise to promote bone health. Pt followed by PCP for osteoporos is, on alendronat e and requested next DEXA result as ordered by PCP be fwd to our office. - Discussed with patient the benefits of regular exercise and physical activity as well as a balanced, heart-heal thy diet in order to maintain a healthy weight. - Recommende d regular primary care health maintenanc e with her PCP. - For f/u with urologist and hematologi st for h/o bladder CA and CLL. - Pt not due for colonoscop y (rpt due 2024) - Encouraged annual flu vaccinatio n, pt s/p vaccinatio n this season - Pt to schedule a well woman Product Safety Head exam in one year and to call us with any question or concerns regarding her health and welfare. Cystocele [id number] N81. 10 Mild cystocele noted on exam, may be contributi ng to pts difficulty in voiding, pt advised on reposition ing techniques to ensure bladder emptying. If sx persist or if having feeling of full bladder/in ability to empty, to return for postvoid residual volume assessment . Depression screening 171 044699 Z13.31 [id number] Julia Segura MD [facility] 20 [facility],[address] [address] 03/31/2021 11:17:10 03/31/2021 12:03:30 Gynecologic examination 38078193 Z01.419 Pt p/f well-woman exam. Pt's history is unremarkab le and exam is normal. - Pap was {{performe d not performed* }}today as guidelines recommend d/c'ing cervical CA screening at age 65 as long as no h/o DOYLE-2+, pt without any abnl paps thus no further paps indicated. - Annual Digital Bilateral Mammogram was recommende d and ordered--U S also recommende d for screening if patients have dense breasts. Pt had in office mammo today, will f/u result. - Pt counseled regarding menopausal symptoms including hot flushes, vaginal dryness, mood changes, and difficulty sleeping. She has been offered an appointmen t to speak to me specifical ly about these symptoms and some strategies to ease them if and when they occur. - Pt made aware that any VB after menopause is not normal and she should call to make an appointmen t for evaluation if she experience s PMB. - Pt advised on the benefits of self-breas t awareness and SBE. - Pt made aware of recommenda tion of 1200 mg of daily Calcium (best source is from diet, if possible) and 2000iu vit D3 daily along with weight bearing exercise to promote bone health. Pt followed by PCP for osteoporos is, on alendronat e and next DEXA per PCP. - Discussed with patient the benefits of regular exercise and physical activity as well as a balanced, heart-heal thy diet in order to maintain a healthy weight. - Recommende d regular primary care health maintenanc e with her PCP. - For f/u with urologist and hematologi st for h/o bladder CA and CLL. - Pt not due for colonoscop y (rpt due 2024), pt considerin rita cologuard for next one. - Encouraged annual flu vaccinatio n and COVID vaccine/mary ost. - Pt to schedule a well woman Product Safety Head exam in one year and to call us with any question or concerns regarding her health and welfare. Depression screening 171 364965 Z13.31 neg [id number] Julia Segura MD [facility] 20 [facility],[address] [address] 06/18/2022 11:59:23 06/18/2022 13:00:48 Gynecologic examination 50093554 Z01.419 Pt p/f well-woman exam. Pt's history is unremarkab le and exam is normal. - Pap was not performed today as guidelines recommend d/c'ing cervical CA screening at age 65 as long as no h/o DOYLE-2+, pt without any abnl paps thus no further paps indicated. - Annual Digital Bilateral Mammogram was recommende d and ordered--U S also recommende d for screening if patients have dense breasts. Pt had in office mammo today, will f/u report. - Pt counseled regarding menopausal symptoms including hot flushes, vaginal dryness, mood changes, and difficulty sleeping. She has been offered an appointmen t to speak to me specifical ly about these symptoms and some strategies to ease them if and when they occur. - Pt made aware that any VB after menopause is not normal and she should call to make an appointmen t for evaluation if she experience s PMB. - Pt advised on the benefits of self-breas t awareness and SBE. - Pt made aware of recommenda tion of 1200 mg of daily Calcium (best source is from diet, if possible) and 2000iu vit D3 daily along with weight bearing exercise to promote bone health. Pt followed by PCP for osteoporos is, completed ~5yrs of alendronat e and next DEXA per PCP (last 2021 showed improvemen t) - Discussed with patient the benefits of regular exercise and physical activity as well as a balanced, heart-heal thy diet in order to maintain a healthy weight. - Recommende d regular primary care health maintenanc e with her PCP. - For f/u with urologist and hematologi st for h/o bladder CA and CLL. - Pt not due for colonoscop y (rpt due 2024), pt considerin rita cologuard for next one. - Pt to schedule a well woman Product Safety Head exam in one year and to call us with any question or concerns regarding her health and welfare. Depression screening 171 [id number] Z13.31 neg [id number] Julia Segura MD [facility] 20 [facility],[address] [address] 07/05/2023 10:18:58 07/05/2023 11:44:26 Gynecologic examination [id number] Z01.419 Pt p/f well-woman exam. Pt's history is unremarkab le and exam is reassuring . - Pap was not performed today as guidelines recommend d/c'ing cervical CA screening at age 65 as long as no h/o DOYLE-2+, pt without any abnl paps thus no further paps indicated. - Annual Digital Bilateral Mammogram was recommende d and ordered--U S also recommende d for screening if patients have dense breasts. Pt had in office mammo today, will f/u report. - Pt counseled regarding menopausal symptoms including hot flushes, vaginal dryness, mood changes, and difficulty sleeping. She has been offered an appointmen t to speak to me specifical ly about these symptoms and some strategies to ease them if and when they occur. - Pt made aware that any VB after menopause is not normal and she should call to make an appointmen t for evaluation if she experience s PMB. - Pt advised on the benefits of self-breas t awareness and SBE. - Pt made aware of recommenda tion of 1200 mg of daily Calcium (best source is from diet, if possible) and 2000iu vit D3 daily along with weight bearing exercise to promote bone health. Pt followed by PCP for osteoporos is, completed ~5yrs of alendronat e and next DEXA ordered (discussed rec to schedule 2 yrs after last 07/2021 DEXA (thus can schedule as early as August given insurance coverage every other year). - Discussed with patient the benefits of regular exercise and physical activity as well as a balanced, heart-heal thy diet in order to maintain a healthy weight. - Recommende d regular primary care health maintenanc e with her PCP. - For f/u with urologist and hematologi st for h/o bladder CA and CLL. - Pt not due for colonoscop y (rpt colon CA screen due 2024), pt considerin rita cologuard for next one. - Pt to schedule a breast check in 1 yr and a well woman Product Safety Head exam in 2 yrs. Also to call us with any question or concerns regarding her health and welfare. Depression screening 171 183524 Z13.31 neg Health Concerns Section Related Observation LastModified by Organization Detai ls LastModified Time None Recorded Concern Status LastModified by Organization Details LastModified Time None Recorded Advance Directives Directive None Recorded Payers Encounter Date Sequence Insurance Name Policy Number Policy Ruiz Covered Member ID Ruiz Member ID Guarantor Name 08/08/2018 1 [facility] - MEDICARE PREFERRED (MEDICARE REPLACEMENT HMO) [facility] Mendy Beyer [id number] 1 Mendy Beyer 03/20/2020 1 [facility] - MEDICARE PREFERRED (MEDICARE REPLACEMENT HMO) HUNTER Beyer [id number] Mendy Beyer 03/31/2021 1 [facility] - MEDICARE PREFERRED (MEDICARE REPLACEMENT HMO) [facility] [id number] 1 Mendy Beyer 06/18/2022 1 [facility] - MEDICARE PREFERRED (MEDICARE REPLACEMENT HMO) HUNTER Beyer [id number] 1 Mendy Beyer 07/05/2023 1 [facility] - MEDICARE PREFERRED (MEDICARE REPLACEMENT HMO) [facility] Mendy Beyer [id number] 1 Mendy Beyer Notes Date Note Type Note Provider Name and Address Organization Details Recorded Time 08/08/2018 text/html [facility] Annual GYNReported bypatient.History: no gynecologic complaints Menstrual cycle:postmenopaus al Urinary symptoms:No hematuria; No incontinence Vulva:No genital lesion Vagina:Normal vaginal discharge Breast:No breast pain; No breast lump; No nipple discharge Sexual activity:sexually active no; No sexual complaints Preventive measures:Followed with yearly pap smears (every 2 yrs); Needs to schedule mammogram; Up to date on colonoscopy screening JOE SEN MD [address] [facility], [address] [facility], [place], [address], [facility] 08/08/2018 13:30:43 03/20/2020 text/html [facility] Annual GYNReported bypatient.History: declined inspector fabric. pt c/o trouble emptying bladder.-acd Menstrual cycle:postmenopaus al Urinary symptoms:No hematuria; No incontinence Vulva:No genital lesion Vagina:Normal vaginal discharge Breast:No breast pain; No breast lump; No nipple discharge Sexual activity:sexually active no; No sexual complaints Menopausal symptoms:No menopausal symptoms; Normal vaginal lubrication Psychological symptoms:No depression; No anxiety Preventive measures:Encourage self breast examination; Encourage regular exercise; Encourage no tobacco use; Encourage regular mammograms starting age 40Notes:70 y.o. F presents for annual well-woman visit. Pt in recovery from bladder CA--- yearly visits to urology (due per pt April 2020). Also followed by hematology for CLL--- seeing that specialist [id number] and considering spacing out to one year. Treated by PCP for osteoporosis with alendronate. Pt reports she has trouble completely emptying, often has to wait after her initial voiding attempt and then completely void. No VB since menopause. Denies vaginal dryness, not sexually active, see case 03/20/20 or IPV screen. Diet is balanced, varied source of calcium, takes vitamin D3. Exercise is through walking her dogs. Moods are good denies, depr/anx. Pt denies any fever/chills, n/v, SOB, CP, dizziness, leg pain. No bloating or early satiety, no significant wt changes. No bowel complaints. No breast complaints. Julia Segura MD [address] [facility], [address], [place], [address], [place] [facility] 03/20/2020 13:11:26 03/31/2021 text/html [facility] Annual GYNReported bypatient.History: no gynecologic complaints; Pt reports no concerns today, declines inspector fabric /ALD Menstrual cycle:postmenopaus al Urinary symptoms:No hematuria; No incontinence Vulva:No genital lesion Vagina:Normal vaginal discharge Breast:No breast pain; No breast lump; No nipple discharge Sexual activity:sexually active no; No sexual complaints Menopausal symptoms:No menopausal symptoms; Normal vaginal lubrication Psychological symptoms:No depression; No anxiety Preventive measures:Encourage self breast examination; Encourage regular exercise; Encourage no tobacco use; Encourage regular mammograms starting age 42Notes:71 y.o. F presents for annual well-woman visit.Pt in recovery from bladder CA--- yearly visits to urology (due per pt April 2021).Also followed by hematology for CLL--- seeing that specialist [id number] for now (Dr. Brown) Treated by PCP for osteoporosis with alendronate. No VB since menopause.Denies vaginal dryness, not sexually active, no change to IPV screen (see update to case from 03/20/20). Pt reporting happy/safe currently. Diet is balanced, varied source of calcium, takes vitamin D3.Exercise is through walking her dog.Moods are good denies, depr/anx.Pt denies any fever/chills, n/v, SOB, CP, dizziness, leg pain. No bloating or early satiety, no significant wt changes. No bowel complaints. No breast complaints. No urinary complaints. Julia Segura MD [address] [place] [address], [address] Floor, [place], [address], [facility] 03/31/2021 14:07:48 06/18/2022 text/html [facility] Annual GYNReported bypatient.Menstrua l cycle:postmenopaus al Urinary symptoms:No hematuria; No incontinence Vulva:No genital lesion Vagina:Normal vaginal discharge Breast:No breast pain; No breast lump; No nipple discharge Sexual activity:No sexual complaints; No pain during intercourse; Normal libido Menopausal symptoms:No menopausal symptoms; Normal vaginal lubrication Psychological symptoms:No depression; No anxiety; No PMDDNotes:72 y.o. F presents for annual well-woman visit. Pt's poodle was put down 2 days ago d/t CA in lungs. Pt not yet ready for a new dog. Pt in recovery from bladder CA--- yearly visits to urology.Also followed by hematology for CLL--- seeing that specialist [id number] for now (Dr. Brown)Treated previously by PCP for osteoporosis with alendronate, now on drug holiday given improvement in bone density. No VB since menopause. Denies vaginal dryness, not sexually active, see update to case from 03/20/20 for IPV screen. Pt reporting happy/safe currently. Diet is balanced, varied source of calcium, takes vitamin D3.Exercise is through walking her dog (who just 2 days ago), also standing/lifting while working at [employer].Moods are good denies, depr/anx. No bloating or early satiety, no significant wt changes. No bowel complaints. No breast complaints. No urinary complaints. Julia Segura MD [address] [place] [address], [address] Floor, [place], [address], [facility] 06/18/2022 21:06:49 07/05/2023 text/html [facility] Annual GYNReported bypatient.Menstrua l cycle:postmenopaus al Urinary symptoms:No hematuria; No incontinence Vulva:No genital lesion Vagina:Normal vaginal discharge Breast:No breast pain; No breast lump; No nipple discharge Sexual activity:sexually active no ; No sexual complaints; No pain during intercourse; Normal libido Menopausal symptoms:No menopausal symptoms; Normal vaginal lubrication Psychological symptoms:No depression; No anxiety; No PMDDNotes:73 y.o. F presents for annual well-woman visit.Pt got a new dog (rescue, 2 yrs old), walking w/ dog 4 mi/day.Still working parttime at [employer]. Watching b/l carotid stenosis, being monitored by ultrasound.Pt in recovery from bladder CA--- yearly visits to urology.Also followed by hematology for CLL--- seeing Dr. Brown 1-2x yearly, known left groin LN per pt already evaluated by Dr. Brown and related to her CLL. Treated previously by PCP for osteoporosis with alendronate, now on drug holiday given improvement in bone density. No VB since menopause.Denies vaginal dryness, not sexually active, see update to case from 03/20/20 for IPV screen. Diet is balanced, varied source of calcium, takes vitamin D3.Exercise is through walking her dog 4mi/day. Also standing/lifting while working at [employer].Moods are good denies, depr/anx. No bloating or early satiety, no significant wt changes. No bowel complaints. No breast complaints. No urinary complaints. Patroller declined. Well woman visit. No concerns. LL Julia Segura MD [address] [place] [address], [address] Floor, [place], [address], [place] [facility] 07/05/2023 11:04:36 OBGyn Episode No OBEpisode recorded.
--- OUTSIDE RECORDS SUMMARY | 2024-03-21 12:07 | XMS_ITS | Clinical Summary ---
Author Organization [facility] Address [address] [place] [address] Care Team Providers Care Barley Steeper Name Role Phone Laura Isbell PA-C Primary Care Provider Allergies Active Allergy Reactions Criticality Noted Date Comments Latex 10/15/2017 Miconazole 10/15/2017 Nickel 10/15/2017 Medications Medication Sig Dispensed Refills Start Date End Date Status CALCIUM PO Take by mouth. 0 Active metoprolol succinate (TOPROL-XL) 24 hr tablet 25 mg Take by mouth daily. 0 Active Lactobacillus (PRIMADOPHILUS PO) Take by mouth. 0 Ac tive B Complex Vitamins (B COMPLEX 1 PO) Take by mouth. 0 Active atorvastatin (LIPITOR) tablet 40 mg Take 1 tablet (40 mg total) by mouth daily. 0 Active Active Problems No known active problems Social History Tobacco Use Types Packs/Day Years Used Date Smoking Tobacco: Former Cigarettes Q uit: 03/01/2007 Smokeless Tobacco: Never Alcohol Use Standard Drinks/Week Comments Yes 0 (1 standard drink = 0.6 oz pur e alcohol) Sex and Gender Information Value Date Recorded Sex Assigned at Not on file Gender Identity Not on file Sexual Orientation Not on file Job Start Date Occupation Industry Not on file Not on file Not on file Last Filed Vital Signs Vital Sign Reading Time Taken Comments Blood Pressure 140/76 01/12/2023 9:09 AM EST Pulse 55 01/12/2023 9:09 AM EST Temperature 36.7 ??C (98 ??F) 01/12/2023 9:09 AM EST Respiratory Rate - - Oxygen Saturation 100% 01/12/2023 9:09 AM EST Inhaled Oxygen Concentration - - Weight 59 kg (130 lb) 01/12/2023 9:09 AM EST Height 157.5 cm (5' 2 ) 01/12/2023 9:09 AM EST Body Mass Index 23.78 01/12/2023 9:09 AM EST Plan of Treatment Health Maintenance Due Date Last Done Comments Hepatitis C Screening 1952 Depression Screening 1964 Preventative Health Evaluation 1970 DTap / Tdap / Td (1 - Tdap) 1971 Colon Cancer Screening (Colonoscopy) 1997 Breast Cancer Screening (Mammogram) 2002 Shingrix-Zoster Vaccine (1 o f 2) 2002 Fall Risk Assessment 2017 Pneumococcal Vaccine (1 of 1 - PCV) 2017 Osteoporosis Screening (DEXA Scan) 07/06/2018 07/06/2016 COVID-19 Vaccine ( - 2023-2 5 season) 2023 12/11/2020, 06/03/2020, 05/13/2020 Influenza Vaccine (#1) 2023 RSV Adult > 60+ Yrs or (1 - 1-dose 75+ series) 2027 Hepatitis B Vaccines Aged Out No long er eligible based on patient's age to complete this topic RSV Ped < 20 months Aged Out No longe r eligible based on patient's age to complete this topic Care Teams Barley Steeper Relationship Specialty Start Date End Date Laura Isbell PA-C PCP - General Medical Services 02/02/22
--- OUTSIDE RECORDS SUMMARY | 2024-03-21 12:07 | XMS_ITS | Clinical Summary ---
Author Organization [facility] Address [address] [place] [address] Care Team Providers Care Manager Talent Acquisition Name Role Phone Laura Isbell Primary Care Provider [phone] Allergies Active Allergy Reactions Criticality Noted Date Comments Bacitracin GI Intolerance/Nausea/Vomiting, Unknown/Patient and Family Unable to Define Medium 01/17/2013 Latex Rash/Dermatitis,Unkn own/Heather ent and Family Unable to Define Medium 01/17/2013 Lwl-Gcglu-Vnib-Lidocaine Rash/Dermatitis Low 2023 Neomycin GI Intolerance/Nausea/Vomiting, Unknown/Patient and Family Unable to Define Medium 01/17/2013 Nickel Rash/Dermatitis,GI Intolerance/Nausea/Vomiting Low 10/15/2017 Polymyxin B GI Intolerance/Nausea/Vomiting, Hives Medium 01/17/2013 Medications Medication Sig Dispensed Refills Start Date End Date Status metoPROLOL SUCCINATE (TOPROL-XL) 25 MG 24 hr tablet 11/25/2020 Active CALCIUM PO Take by mouth. Active Lactobacillus (Primadophilus) Cap Take by mouth. A ctive B Complex-Folic Acid (B COMPLEX-VITAMIN B12 PO) Take by mouth. Active atorvastatin (LIPITOR) 40 MG tablet 12/30/2022 Active aspirin 81 MG chewable tablet Chew 81 mg daily. Active Calcium Carb-Cholecalciferol (Calcium + Vitamin D3) 600-5 MG-MCG Tab 1 tablet with a meal Orally Once a day Active furosemide (LASIX) 20 MG tablet Take 20 mg by mouth as needed (swelling). Active Active Problems Problem Noted Date Diagnosed Date Leukopenia 12/18/2023 Malignant lymphoma, small lymphocytic 12/18/2023 Chronic lymphocytic leukemia 08/08/2018 Overview (02/06/2024): being monitored Leukemia 08/08/2018 Overview (02/06/2024): being monitored Heart murmur 01/17/2013 Overview (02/06/2024): hx fainting spells Hyperlipidemia 01/17/2013 Encounters Date Type Department Care Team Description 02/06/2024 4:45 PM EST Office Visit [facility] [address] [phone] Clifford Robert MD Devitt, Anna C, [place] COVID-19 (Primary Dx); Head congestion 02/06/2024 Travel from Last 3 Months Immunizations Name Administration Dates Next Due Tdap 11/14/2023 Social History Tobacco Use Types Packs/Day Years Used Date Smoking Tobacco: Former Cigarettes 1 35 1 973 - 2008 Smokeless Tobacco: Never Tobacco Cessation:Counseling Given: Not Answered Alcohol Use Standard Drinks/Week Comments Yes 23 (1 standard drink = 0.6 oz pure alcohol) wine @ weekdays, vodka some weekends Sex and Gender Information Value Date Recorded Sex Assigned at Female 11/19/2022 2:49 PM EDT Gender Identity Female 11/19/2022 2:49 PM EDT Sexual Orientation Heterosexual (straight) 11/19 2:49 PM EDT Last Filed Vital Signs Vital Sign Reading Time Taken Comments Blood Pressure 130/80 02/06/2024 3:19 PM EST Pulse 65 02/06/2024 3:19 PM EST Temperature 36.7 ??C (98 ??F) 02/06/2024 3:19 PM EST Respiratory Rate 16 02/06/2024 3:19 PM EST Oxygen Saturation 98% 02/06/2024 3:19 PM EST Inhaled Oxygen Concentration - - Weight 59 kg (130 lb) 02/06/2024 3:19 PM EST Height 157.5 cm (5' 2 ) 02/06/2024 3:19 PM EST Body Mass Index 23.78 02/06/2024 3:19 PM EST Plan of Treatment Health Maintenance Due Date Last Done Comments Hepatitis C Virus Screening 1950 Pneumococcal Vaccines 50+ (1 of 2 - PCV) 1971 Zoster (Shingles) Vaccine (1 of 2) 1971 Mammogram 1992 Colonoscopy 1997 RSV Vaccine 60 years and older and Patients (1 - Risk 60-74 years 1-dose series) 2012 DXA Bone Density (Females,Ages 65 and older) 2017 Influenza Vaccine 09/30/2023 12/19/2021, , 12/04/2019, Additional history exists COVID-19 Vaccine ( season) 2023 07/04/2021, 12/11/2020, 06/03/2020, Additional history exists DTaP/Tdap/Td Vaccines (2 - Td or Tdap) 11/13/2033 11/14/2023 Hepatitis B Vaccines Aged Out No long er eligible based on patient's age to complete this topic Procedures Procedure Name Priority Date/Time Associated Diagnosis Comments POCT RAPID COVID-19 AG (FDA EUA) Routine 02/06/2024 3:36 PM EST Head congestion from Last 3 Months Results * (ABNORMAL) POCT Rapid COVID-19 Antigen (FDA EUA) (02/06/2024 3:36 PM EST) COVID-19 Rapid Antigen, POC (FDA EUA) Positive(A ) Result Comments: A Positive Result does not rule out bacterial infection or co-infection with other viruses. Clinical correlation advised. A Negative Result in symptomatic patients should be considered presumptive and needs confirmation by PCR. Kit Lot Number [id number] Cloth Sponger Pass Pass Swab, Nasal Specimen from nose / Unknown 02/06/2024 3:36 PM EST Enedina Villar MARBLE CLEANER POINT OF CARE TEST O RDERABLES from Last 3 Months Care Teams Manager Talent Acquisition Relationship Specialty Start Date End Date Laura Isbell PA [address] [place] [id number] PCP - General General Medicine 02/06/24
--- OUTSIDE RECORDS SUMMARY | 2024-03-21 12:07 | XMS_ITS | Clinical Summary ---
Author Organization [facility] Address [address] [place] [address] Phone Care Team Providers Care Lighting Designer Name Role Phone Laura Isbell Primary Care Provider [phone] Allergies Active Allergy Reactions Criticality Noted Date Comments Bacitracin Nausea And Vomiting,Unknown Medium 01/18/20 13 Latex Rash,Unknown Medium 01/17/2013 Miconazole 10/15/2017 Oyv-Olnbq-Bdrf-Lidocaine Rash Low 10/23/2023 Neomycin Nausea And Vomiting,Unknown Medium 01/18/20 13 Nickel Nausea And Vomiting,Rash Low 10/15/2017 Polymyxin B Hives,Nausea And Vomiting Medium 3 Medications Medication Sig Dispensed Refills Start Date End Date Status atorvastatin (LIPITOR) 40 mg tablet 12/30/2022 Active metoprolol succinate (TOPROL-XL) 25 mg 24 hr tablet 11/25/2020 Active calcium carbonate-vitamin D3 600 mg-5 mcg (200 unit) per tablet 1 tablet with a meal Orally Once a day Active aspirin 81 mg chewable tablet Chew 1 tablet (81 mg total) daily. Active furosemide (LASIX) 20 mg tablet Take by mouth. 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/18/2023 Leukopenia 12/18/2023 Encounters Date Type Department Care Team Description 01/13/2024 10:00 AM EST Office Visit [facility] Hematology Oncology [address] [place] [phone] Ira Esteves MD Malignant lymphoma, small lymphocytic (CMS/HCC) (Primary Dx) from Last 3 Months Surgical History Surgery Date Site/Laterality Comments EYE SURGERY PROCEDURE:EYE SURGERY TONSILLECTOMY PROCEDURE:TONSILLECTOMY OTHER SURGICAL HISTORY PROCEDURE:adenoids Medical History Medical History Date Comments Gross hematuria DX:Gross hematur ia Urinary tract infection DX:Urina ry tract infection Bladder cancer (CMS/HCC) DX:Blad mitzi cancer (HCC) H/O cystoscopy 09/22/2017 DX:H/O cystoscop y Social History Tobacco Use Types Packs/Day Years [...] file Not on file Not on file Obstetrics History Last Filed Vital Signs Vital Sign Reading Time Taken Comments Blood Pressure 143/76 01/13/2024 10:04 AM EST Pulse 60 01/13/2024 10:04 AM EST Temperature 36.7 ??C (98 ??F) 01/13/2024 10:04 AM EST Respiratory Rate - - Oxygen Saturation 100% 01/13/2024 10:04 AM EST Inhaled Oxygen Concentration - - Weight 60.3 kg (133 lb) 01/13/2024 10:04 AM EST Height 157.5 cm (5' 2 ) 12/18/2023 1:23 PM EDT Body Mass Index 24.33 12/18/2023 1:23 PM EDT Plan of Treatment Upcoming Encounters Date Type Department Care Team (Late st Contact Info) Description 01/12/2025 10:00 AM EST Office Visit [facility] Hematology Oncology [address] [place] [phone] Ira Esteves MD [address] [place] [address] Health Maintenance Due Date Last Done Comments Breast Cancer Screening 1952 Zoster Vaccines (1 of 2) 1971 Colorectal Cancer Screening: Colonoscopy 02/05/2022 Depression Screening 02/05/2022 Falls Risk Assessment 02/05/2022 Hepatitis C Screening 02/05/2022 Medicare Annual Wellness Visit 02/05/2022 Osteoporosis Screening (Bone Density Screening) 02/05/2022 Social Influencers of Health Screening 02/05/2022 COVID-19 Vaccine ( season) 2023 12/03/2022, 07/13/2022, 06/03/2020, Additional history exists Influenza Vaccine (#1) 2023 , 12/19/2021, 11/11/2020, Additional history exists RSV Immunization Patients 60+ Years Old (1 - 1-dose 75+ series) 2027 DTaP,Tdap,and Td Vaccines (2 - Td or Tdap) 11/13/2033 11/14/2023 Pneumococcal Vaccine: 65+ Years Completed 01/19/2022 HIB Vaccines Aged Out No longer eligi ble based on patient's age to complete this topic HPV Vaccines Aged Out No longer eligi ble based on patient's age to complete this topic Hepatitis A Vaccines Aged Out No long er eligible based on patient's age to complete this topic Hepatitis B Vaccines Aged Out No long er eligible based on patient's age to complete this topic IPV Vaccines Aged Out No longer eligi ble based on patient's age to complete this topic MMR Vaccines Aged Out No longer eligi ble based on patient's age to complete this topic Meningococcal ACWY Vaccine Aged Out N o longer eligible based on patient's age to complete this topic RSV Immunization Patients Under 20 months Aged Out No longer eligible based on patient's age to complete this topic Varicella Vaccines Aged Out No longer eligible based on patient's age to complete this topic Procedures Procedure Name Priority Date/Time Associated Diagnosis Comments ..MISCELLANEOUS REFERENCE LAB TEST 01/13/2024 ..MISCELLANEOUS REFERENCE LAB TEST 01/13/2024 ..MISCELLANEOUS REFERENCE LAB TEST 01/13/2024 ..MISCELLANEOUS REFERENCE LAB TEST 01/13/2024 from Last 3 Months Results * Miscellaneous reference lab test (01/13/2024) Only the most recent of4 resultswithin the time period is included. Provider Onbase LAB BLOOD ORDERABLES from Last 3 Months Care Teams Lighting Designer Relationship Specialty Start Date End Date Laura Isbell PA [address] [place] [address] [place] [address] PCP - General 02/02/22
== END 2024-03-21 11:23 | disposition home or self-care (01) ==
PROVIDERS: Visit Provider Internal Medicine
DX: I35.1 Nonrheumatic aortic (valve) insufficiency (principal); C91.10 Chronic lymphocytic leukemia of B-cell type not having achieved remission; Z85.51 Personal history of malignant neoplasm of bladder; I65.29 Occlusion and stenosis of unspecified carotid artery

== ENCOUNTER → 2024-03-21 10:41 | Outpatient (BNVA) | payer MEDICARE, SELFPAY | PROVIDERS: Visit Provider Internal Medicine | DX: E78.5 Hyperlipidemia, unspecified (principal); C91.10 Chronic lymphocytic leukemia of B-cell type not having achieved remission; R73.03 Prediabetes; I35.1 Nonrheumatic aortic (valve) insufficiency; I65.29 Occlusion and stenosis of unspecified carotid artery; Z85.51 Personal history of malignant neoplasm of bladder | CPT/HCPCS: 96127; 99212 ==

== ENCOUNTER 2024-08-21 10:47 | Outpatient (AMB) | payer MEDICARE, SELFPAY ==
--- NOTE | 2024-08-21 10:49 | A.OFFPC_ITS ---
Vital Signs 08/21/24 10:56 Height 5 ft 1.61 in Weight 131 lb 4 oz BMI 24.3 BP 132/57 L Blood Pressure Location Lt brachial Position Sitting Respiration 12 Pulse 57 Pulse Source Pulse Oximeter Temp 98.1 F Temp Source Oral Pulse Oximetry (%) 97 Oxygen Delivery Method Room Air Intake Visit Reasons: CPE/AWV Intake Note: Physical Pain Management Nurse Practitioner Required: No Allergies bacitracin (From Neosporin ([id number])) Allergy (Unknown, Verified 08/21/24 10:54) Unknown latex Allergy (Unknown, Verified 08/21/24 10:54) Unknown neomycin (From Neosporin ([id number])) Allergy (Unknown, Verified 08/21/24 10:54) Unknown polymyxin B (From Neosporin ([id number])) Allergy (Unknown, Verified 08/21/24 10:54) Unknown antiobiotic cream Allergy (Unknown, Uncoded 08/21/24 10:54) Unknown Tobacco use date assessed: 08/21/24 Fall risk assessment: No Falls in past year Last assessed Fall Risk: 08/21/24 Dental Screening Dental Screen Date: 08/21/24 Did you have a dental visit in the last 12 months?: Yes Did you have a dental problem in the last 6 months where you did not have access to dental care?: No Was dental information given to patient?: Patient has dentist HPI HPI Comments History of Present Illness Details The patient is a 74 year old female with a past medical history of AR, pulmonary htn, CLL, hyperlipidemia, bladder cancer and osteopenia presenting for CPE CV: AR, pulmonary htn. stable on metoprolol. History of syncope, no recent episodes. Follows with Dr Coleman. Follows with vascular, Dr Santana for carotid artery stenosis-UTD History of prediabetes which has been stable. She believes she had recent A1C done with cardiology Heme/Onc -CLL-Has not required cytotoxic therapy. Follows with Dr Esteves -History of bladder cancer-treated with surgical resection. Follows with Dr Berg annually Saw [facility]-did not CIs. BCC-Follows with [facility]: [facility] Stopped colonoscopy tdap utd 2016 ROS CONSTITUTIONAL: Denies weight loss, fever and chills. HEENT: Denies changes in vision and hearing. RESPIRATORY: Denies SOB and cough. CV: Denies palpitations and CP GI: Denies abdominal pain, nausea, vomiting and diarrhea. : Denies dysuria and urinary frequency. MSK: Denies new myalgia and joint pain. SKIN: Denies rash and pruritus. NEUROLOGICAL: Denies headache PSYCHIATRIC: Denies recent changes in mood. PHYSICAL EXAM: GENERAL: Alert and oriented x 3. NAD EYES: EOMI. Anicteric. HENT: Moist mucous membranes. No scleral icterus. No cervical lymphadenopathy. LUNGS: Clear to auscultation bilaterally. CARDIOVASCULAR: Regular rate and rhythm. No murmur. No JVD. ABDOMEN: Soft, non-tender +bs EXTREMITIES: No edema. Non-tender. SKIN: No rashes or lesions. Warm. NEUROLOGIC: No focal neurological deficits. CN II-XII grossly intact PSYCHIATRIC: Cooperative. 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 Current occupational exposures/hazards: No Cognitive needs: No Hearing needs: Yes (hearing aids both ears) Vision needs: No Questionnaire Thrive Questionnaire Date Thrive assessed: 03/14/24 I am a: Patient What is your living situation today?: I have a steady place to live Within the past 12 months, did the food you bought not last and you didn't have the money to get more?: Never true Within the past 12 months, did you worry whether your food would run out before you got money to buy more?: Never true Do you have trouble paying for medicines?: No Do you have trouble getting transportation to medical appointments?: No Do you have trouble paying your heating and electricity bill?: No Do you have trouble taking care of your child, family member or friend?: No Do you have trouble with day-to-day activities such as bathing, preparing meals, shopping, managing finances, etc.?: No Are you currently unemployed and looking for a job?: No Are you interested in more education?: No Please select the resources that you would like help with: None Currently or been in a relationship where the following occur: No concerns reported THRIVE Score: 0 Physical exam (Primary Care) Vital Signs: Last Vital Signs Temp 98.1 F 08/21/24 10:56 Pulse 57 08/21/24 10:56 Resp 12 08/21/24 10:56 BP 132/57 L 08/21/24 10:56 Pulse Ox 97 08/21/24 10:56 Oxygen Delivery Method Room Air 08/21/24 10:56 BMI result Body Mass Index 24.3 Tobacco/Smoking Status: Tobacco use Status Tobacco use date assessed 08/21/24 08/21/24 11:03 Patient Tobacco Use Status Former Tobacco user 08/21/24 10:49 e-Cigarette/Vaping Use Never Used 08/21/24 10:49 Thrive Assessment: Date of Thrive Assessment Date Thrive assessed 03/14/24 08/21/24 10:49 Currently or been in a relationship where the following occur: No concerns reported Coding Level of Care Code Est Pt Prev Care >65y(62447) Diagnoses Stenosis of carotid artery, unspecified laterality I65.29 Laterality: unspecified laterality Aortic valve insufficiency, etiology of cardiac valve disease unspecified I35.1 Cardiac valve disease etiology: etiology unspecified Physical exam Z00.00 Assessment & Plan Assessment & Plan (1) Carotid artery stenosis: Code(s): I65.29 - Occlusion and stenosis of unspecified carotid artery Category: Medical Qualifiers: Laterality: unspecified laterality Qualified Code(s): I65.29 - Occlusion and stenosis of unspecified carotid artery (2) Aortic regurgitation: Comment: Follows with Dr Coleman Code(s): I35.1 - Nonrheumatic aortic (valve) insufficiency Category: Medical Qualifiers: Cardiac valve disease etiology: etiology unspecified Qualified Code(s): I35.1 - Nonrheumatic aortic (valve) insufficiency (3) Physical exam: Code(s): Z00.00 - Encounter for general adult medical examination without abnormal findings Plan 74 year old for cpe Interval history reviewed Preventive measures for age-declines colon cancer screening BP controlled CLL-easy bruising. Discussed senile purpura. Labs and heme/onc UTD Mammo ordered Orders: Orders TSH reflex Free T4 Today C91.10 - Chronic lymphocytic leukemia of B-cell type not having achieved remission, R73.03 - Prediabetes, Z00.00 - Encounter for general adult medical examination without abnormal findings, Z13.220 - Encounter for screening for lipoid disorders Complete Blood Count Auto Diff Today C91.10 - Chronic lymphocytic leukemia of B-cell type not having achieved remission, R73.03 - Prediabetes Comprehensive Met. Panel Today C91.10 - Chronic lymphocytic leukemia of B-cell type not having achieved remission, R73.03 - Prediabetes, Z00.00 - Encounter for general adult medical examination without abnormal findings, Z13.220 - Encounter for screening for lipoid disorders Lipid Panel Today C91.10 - Chronic lymphocytic leukemia of B-cell type not having achieved remission, R73.03 - Prediabetes, Z00.00 - Encounter for general adult medical examination without abnormal findings, Z13.220 - Encounter for screening for lipoid disorders Hemoglobin A1c Today C91.10 - Chronic lymphocytic leukemia of B-cell type not having achieved remission, R73.03 - Prediabetes, Z00.00 - Encounter for general adult medical examination without abnormal findings, Z13.220 - Encounter for screening for lipoid disorders MM screening mammo BI Today Z12.31 - Encounter for screening mammogram for malignant neoplasm of breast
[2024-08-21 10:56] VITALS: BP 132/57; PULSE 57; RESP 12; TEMP 36.7; O2SAT 97; BMI 24.3
--- OUTSIDE RECORDS SUMMARY | 2024-08-21 12:09 | XMS_ITS | Patient Health Record ---
Author Organization [facility] Address [address] [place] [address] Care Team Providers Care Wrapper Stemmer Hand Name Role Phone Sheyla Tafoya Primary Care Provider Unavailabl e Allergies Allergen (clinical drug ingredient) Drug/Non Drug Allergy documented on EMR Reaction Allergy Type Onset Date Status Neosporin Unknown Drug Allergy Active Latex Latex Unknown Allergy Active nickel Nickel Unknown Allergy Active Reason For Referral No Information Medications Medication SIG (Take, Route, Frequency, Duration) Notes Start Date End Date Status Calcium + Vitamin D3 600-5 MG-MCG 1 tablet with a meal Orally Once a day Active Probiotic - as directed Orally Active Metoprolol Succinate ER 25 MG 1 tablet Orally Once a day Active Aspirin 81 MG 1 tablet Orally Once a day Active Atorvastatin Calcium 40 MG 1 tablet Oral ly Once a day Active Super B Complex Acti ve Plan Of Treatment Pending Test Test Name Order Date Trim skin lesion 06/23/2023 Insurance Providers Payer Name Payer Address Payer Phone Subscriber Number Group Number Insured Name Patient Relationship to Insured Coverage Start Date Coverage End Date [employer] Preferred [address] [place] [address] [phone] [id number] Mendy Beyer Self - patient is the insured Medical (General) History Medical History History ICD Code basal cell carcinoma of the mid back - s /p excision hypercholesterolemia carotid artery stenosis lower than 90% b lockage Malignant tumor of bladder-s/p resection Chronic lymphocytic leukemia/Small lymph ocytic lymphoma + COVID 2021 Melanoma in situ - s/p excision Mild aortic regurgitation Mild pulmonary hypertension Lower extremity varicosities Osteopenia Hearing loss Surgical History Surgery Date(Month/Year) excision basal cell cancer of the mid ba ck (1.5 X 2.5cm) 05/31/2023 bladder tumor surgery tonsillectomy and adenoidectomy broken nose Excision of melanoma Hospitalization History Reason Date(Month/Year) tonsillectomy and adenoidectomy
== END 2024-08-21 11:27 | disposition home or self-care (01) ==
LOC: HO.HMCFM 10:48
PROVIDERS: PCP Internal Medicine; Visit Provider Internal Medicine
DX: I65.29 Occlusion and stenosis of unspecified carotid artery (principal); I35.1 Nonrheumatic aortic (valve) insufficiency; Z00.00 Encounter for general adult medical examination without abnormal findings

== ENCOUNTER → 2024-08-21 10:47 | Outpatient (BNVA) | payer MEDICARE, SELFPAY | PROVIDERS: PCP Internal Medicine; Visit Provider Internal Medicine | DX: Z00.00 Encounter for general adult medical examination without abnormal findings (principal); I65.29 Occlusion and stenosis of unspecified carotid artery; I35.1 Nonrheumatic aortic (valve) insufficiency; C91.10 Chronic lymphocytic leukemia of B-cell type not having achieved remission; I27.20 Pulmonary hypertension, unspecified; Z85.51 Personal history of malignant neoplasm of bladder; Z79.899 Other long term (current) drug therapy | CPT/HCPCS: 99397 ==